=== PATIENT | female | born 1930 | race Caucasian/White ===

== ENCOUNTER 2016-12-09 17:28 | Emergency (ER) | payer OTHER ==
--- NOTE | 2016-12-09 17:49 | ED.PDOC ---
History of Present Illness - General Chief Complaint: Chest Pain/OK Stated Complaint: elevated troponin Time Seen by Provider: 12/09/16 17:37 Source: patient, RN notes reviewed, Vital Signs reviewed, family - Daughter Exam Limitations: no limitations - History of Present Illness Initial Comments: Patient was sent for outpatient EKG and labs. Labs done @ 16:25 showed an elevated Troponin of 0.08 so patient was called and told to come the the ER. Patient and daughter report that she did have an episode of chest pain with SOB that started about 6am today. She describes it as a dull pressure and feeling like she could not breath. Unsure how long it lasted but it was a single episode , it did not come and go. She is currently pain free and breathing without difficulty. No diaphoresis or nausea. Timing/Duration: resolved prior to arrival, gone now Severity: moderate Location: substernal Activities at Onset: sleep Prior Chest Pain/Cardiac Workup: no prior chest pain, no prior cardiac workup Improving Factors: nothing Worsening Factors: nothing Associated Symptoms: chest pain, shortness of breath Allergies/Adverse Reactions: Allergies NO KNOWN ALLERGY Allergy (Verified 01/18/15 18:34) Home Medications: Ambulatory Orders Furosemide [Lasix] 20 mg PO DAILY #10 tab 11/10/13 Potassium Chloride Tab [K-Dur] 20 meq PO DAILY #10 tab 11/10/13 Enoxaparin Sodium [Lovenox] 80 mg SUBCU DAILY #7 syg 01/18/15 Warfarin Sodium [Coumadin] 5 mg PO DAILY #90 tab 01/18/15 Review of Systems - Review of Systems Constitutional: States: no symptoms reported. Denies: chills, diaphoresis, malaise EENTM: States: no symptoms reported Respiratory: States: see HPI, short of breath. Denies: cough Cardiology: States: see HPI, chest pain. Denies: palpitations, syncope Gastrointestinal/Abdominal: States: no symptoms reported. Denies: nausea, vomiting Musculoskeletal: States: no symptoms reported Skin: States: no symptoms reported Neurological: States: no symptoms reported All other Systems: No Change from Baseline Past Medical History (General) - Patient Medical History Hx Hypertension: No Hx Diabetes: No - Vaccination History Hx Tetanus, Diphtheria Vaccination: Yes Hx Influenza Vaccination: No - refuses - Social History Hx Tobacco Use: No - Female History Patient : No Family Medical History - Family History Mother Family History: No Known Physical Exam - Physical Exam General Appearance: Alert, Comfortable, Frail, No apparent distress, Well Developed, Well Groomed, Well Hydrated, Well Nourished Neck: supple, normal inspection Respiratory: chest non-tender, lungs clear, normal breath sounds, no respiratory distress, no accessory muscle use Cardiovascular/Chest: regular rate, rhythm, no edema, no gallop, systolic murmur - / Gastrointestinal/Abdominal: normal bowel sounds, non tender, soft, no organomegaly, no pulsatile mass Extremity: normal range of motion, normal inspection Neurologic: alert, normal mood/affect, oriented x 3 Skin Exam: normal color, warm/dry Comments: Vital Signs 12/09/16 17:34 Temperature 98.0 F Pulse Rate [ 95 H monitor] Respiratory 20 Rate Blood Pressure 145/45 [Left Arm] O2 Sat by Pulse 96 Oximetry Progress - Progress Progress: 12/09/16 22:[address] Peñaloza @ [facility] in [place]. Will transfer to patient directly to ICU. - Results/Orders Results/Orders: Laboratory Tests 12/09/16 12/09/16 19:40 19:51 D-Dimer, Quantitative 4678 H* Creatine Kinase 57 CK-MB (CK-2) 1.9 CK-MB (CK-2) % Not Reportable Troponin I 0.08 H* B-Natriuretic Peptide Cancelled - EKG/XRAY/CT EKG: Sinus, no ST T wave changes Comments: Rate 94 CT: Rupesh Pulm. Emboli: R main extending through most of lung, L sm clot LLL CT Ordered: Yes Departure - Departure Clinical Impression: Troponin level elevated Pulmonary embolism Qualifiers: Pulmonary embolism type: other Chronicity: acute Acute cor pulmonale presence: without acute cor pulmonale Qualified Code(s): I26.99 - Other pulmonary embolism without acute cor pulmonale Time of Disposition: 22:50 Disposition: Transfer to Hospital Condition: Poor Departure Forms: ED Discharge - Pt. Copy, Patient Portal Self Enrollment Referrals: Cristiana Kuo NP [Primary Care Provider] - 1-2 Weeks Home Medications: Ambulatory Orders Furosemide [Lasix] 20 mg PO DAILY #10 tab 11/10/13 Potassium Chloride Tab [K-Dur] 20 meq PO DAILY #10 tab 11/10/13 Enoxaparin Sodium [Lovenox] 80 mg SUBCU DAILY #7 syg 01/18/15 Warfarin Sodium [Coumadin] 5 mg PO DAILY #90 tab 01/18/15 Transfer to Outside Facility - Transfer Information Accepting Provider:: Dr. Peñaloza Accepting Facility: [facility] Reason for Transfer: specialized care not available
[2016-12-09 20:35] VITALS: O2SAT 94
--- NOTE | 2016-12-09 22:31 | CT ---
EXAM DESCRIPTION: CTA Chest CLINICAL HISTORY: 86 years Female, chest pain w/ elevated D-Dimer COMPARISON: Chest radiograph same day TECHNIQUE: Axial CT images of the chest were acquired after the administration of intravenous contrast. Coronal and sagittal reconstructions were obtained. 3-D postprocessing was acquired at an independent workstation. This exam was performed according to our departmental dose-optimization program which includes use of Automated Exposure Control, adjustment of the mA and/or kV according to patient size and/or use of iterative reconstruction technique. FINDINGS: Neck base: Heterogeneous thyroid with a subcentimeter hypoattenuating right thyroid nodule. Mediastinum: Small hiatal hernia with thickening of the distal esophagus. Lymph Nodes: No lymphadenopathy. Heart and pericardium: There is no evidence of right heart strain. Coronary artery calcifications. Aorta: Moderate calcific atherosclerosis of the thoracic aorta. Pulmonary Artery: Thrombus within the main right pulmonary artery extending into multiple lobar, segmental, and subsegmental branches. Smaller amount of thrombus within the left lower lobe lobar and subsegmental branches. Central Airways: Patent. Pleura: Small left pleural effusion. Lungs: Biapical scarring. 3 mm right lower lobe groundglass nodule image 23 series 2. 2 mm pulmonary nodule left upper lobe image 10. Mild bibasilar atelectasis. Upper abdomen: Cholelithiasis. Bones and soft tissues: Partially visualized chronic appearing compression deformity of the L1 vertebral body. IMPRESSION: Large right and small left pulmonary emboli. No evidence of right heart strain. Small pulmonary nodules, the largest measuring 3 mm in the right lower lobe. Consider optional chest CT in 12 months. Cholelithiasis. Chronic appearing compression deformity of the L1 vertebral body. Critical findings discussed with Dr. ZAK SCHERER by Alvarez Hernández MD at 12/09/2016 10:25 PM CDT by phone. Electronically signed by: Alvarez Hernández MD 12/09/2016 10:30 PM CDT
[2016-12-09 22:48] VITALS: BP 151/73
[2016-12-09] MEDS ORDERED: HEPARIN PREMIX 500 ML ONE (22:54)
[2016-12-09] MEDS ORDERED: HEPARIN PREMIX 25,000 UNITS in PREMIX BAG 1 BAG IVS SCH (23:00)
[2016-12-09 23:15] VITALS: TEMP 96.6
== END 2016-12-09 23:16 | disposition short-term general hospital (02) ==
LOC: ER 17:28
DX: I26.99 Other pulmonary embolism without acute cor pulmonale (principal); R79.89 Other specified abnormal findings of blood chemistry; Z79.899 Other long term (current) drug therapy; Z79.01 Long term (current) use of anticoagulants
CPT/HCPCS: 36415; 71275; 82550; 82553; 84484; 85379; J1644

== ENCOUNTER 2017-07-02 19:33 | Emergency (ER) | payer OTHER ==
--- NOTE | 2017-07-02 19:59 | ED.PDOC ---
History of Present Illness - General Chief Complaint: Lower Extremity Injury Stated Complaint: left lower extremity pain Time Seen by Provider: 07/02/17 19:55 Source: family - daughter Exam Limitations: no limitations - History of Present Illness Initial Comments: Chika Sampson 87 y/o female brought by daughter with sharp left thigh pain while while walking twisting her left leg and almost fell but daughter was able to grab her. Occurred: just prior to arrival Pain - Lower Extremity: moderate: Left Thigh/Hip, Left Knee Method of Injury: twisted Improving Factors: rest Worsening Factors: movement Associated Symptoms: pain Allergies/Adverse Reactions: Allergies NO KNOWN ALLERGY Allergy (Verified 01/18/15 18:34) Home Medications: Ambulatory Orders Furosemide [Lasix] 20 mg PO DAILY #10 tab 11/10/13 Potassium Chloride Tab [K-Dur] 20 meq PO DAILY #10 tab 11/10/13 Enoxaparin Sodium [Lovenox] 80 mg SUBCU DAILY #7 syg 01/18/15 Warfarin Sodium [Coumadin] 5 mg PO DAILY #90 tab 01/18/15 Review of Systems - Review of Systems Constitutional: States: no symptoms reported EENTM: States: no symptoms reported Respiratory: States: no symptoms reported Cardiology: States: no symptoms reported Gastrointestinal/Abdominal: States: no symptoms reported Musculoskeletal: States: see HPI All other Systems: Reviewed and Negative, No Change from Baseline Past Medical History (General) - Patient Medical History Hx Seizures: No Hx Stroke: No Hx Dementia: No Hx Asthma: No Hx of COPD: No Hx Cardiac Disorders: No Hx Congestive Heart Failure: Yes - takes lasix and potassium Hx Pacemaker: No Hx Hypertension: No Hx Thyroid Disease: No Hx Diabetes: No Hx Gastroesophageal Reflux: No Hx Renal Disease: No Hx of HIV: No Hx MRSA: No Hx Other PMH: Yes - pe/dvt-on NOACS - Vaccination History Hx Tetanus, Diphtheria Vaccination: Yes Hx Influenza Vaccination: No - refuses - Social History Hx Tobacco Use: No - Female History Patient : No Family Medical History - Family History Mother Family History: No Known Physical Exam - Physical Exam General Appearance: Alert, Comfortable, No apparent distress Eyes, Ears, Nose, Throat: normal ENT inspection Neck: non-tender, full range of motion Cardiovascular/Respiratory: regular rate, rhythm, no M/R/G, normal peripheral pulses Back: no CVA tenderness, no vertebral tenderness Thigh/Hip: normal ROM, bone tenderness - left femur, pain - left thigh, soft tissue tenderness - left thigh Leg: non-tender, no evidence of injury Knee: limited ROM - left kne pain,firm no instability Ankle: normal inspection, no evidence of injury Foot: normal inspection, no evidence of injury Neuro/Tendon: normal sensation, normal motor functions Mental Status: alert Skin: normal color, warm/dry Progress - Progress Progress: 07/02/17 21:09 Patient Taking Eliquis 5 mg po BID for her dvt/pe - EKG/XRAY/CT XRAY: knee - no fracture noted hip,fenur knee-left Departure - Departure Clinical Impression: Sprain of left knee/leg Qualifiers: Encounter type: initial encounter Qualified Code(s): S83.92XA - Sprain of unspecified site of left knee, initial encounter Time of Disposition: 21:05 Disposition: Discharge to Home or Self Care Departure Forms: ED Discharge - Pt. Copy, Patient Portal Self Enrollment Instructions: DI for Knee Sprain, DI for Ligament Sprains Referrals: Cristiana Kuo NP [Primary Care Provider] - 1-2 Weeks Home Medications: Ambulatory Orders Furosemide [Lasix] 20 mg PO DAILY #10 tab 11/10/13 Potassium Chloride Tab [K-Dur] 20 meq PO DAILY #10 tab 11/10/13 Enoxaparin Sodium [Lovenox] 80 mg SUBCU DAILY #7 syg 01/18/15 Warfarin Sodium [Coumadin] 5 mg PO DAILY #90 tab 01/18/15 Additional Instructions: Follow up with primary Md 05 July 2017;Return to ER as needed
--- NOTE | 2017-07-02 20:54 | RAD ---
EXAM DESCRIPTION: Femur,Left CLINICAL HISTORY: pain COMPARISON: None FINDINGS: 4 view(s) submitted. Left hip prosthetic hardware appears intact. No definite acute failure or loosening. Osteopenia limits sensitivity for fracture. No fracture or dislocation is identified. Bone marrow attenuation is unremarkable. IMPRESSION: No acute fracture or dislocation. Electronically signed by: Latrell Bailon 07/02/2017 8:53 PM CDT
--- NOTE | 2017-07-02 20:56 | RAD ---
Examination: XR HIP 2 OR MORE VIEWS dated 07/02/2017 8:03 PM CDT History: pain Comparison: None Technique: Two views of the left hip FINDINGS: Left hip arthroplasty without dislocation or periprosthetic fracture. Osteopenia of the visualized pelvis limits evaluation for a subtle fracture. IMPRESSION: Left hip arthroplasty without acute fracture or dislocation. Electronically signed by: Alvarez Hernández MD 07/02/2017 8:55 PM CDT
--- NOTE | 2017-07-02 20:56 | RAD ---
EXAM DESCRIPTION: Knee,Left 2 or More Views CLINICAL HISTORY: pain COMPARISON: None FINDINGS: 2 views were submitted. No fracture or dislocation is identified. Bone marrow attenuation is unremarkable. No radiopaque foreign body is identified. IMPRESSION: No acute fracture or dislocation. Electronically signed by: Latrell Bailon 07/02/2017 8:55 PM CDT
[2017-07-02] MEDS ORDERED: HYDROcodone 5MG/APAP 325MG 1 EA TAB PO ONE (21:06)
[2017-07-03 03:13] VITALS: BP 167/78; TEMP 98.7; O2SAT 94
== END 2017-07-02 22:50 | disposition home or self-care (01) ==
LOC: ER 19:33
DX: S83.92XA Sprain of unspecified site of left knee, initial encounter (principal); I50.9 Heart failure, unspecified; Z86.711 Personal history of pulmonary embolism; Z86.718 Personal history of other venous thrombosis and embolism; Z79.01 Long term (current) use of anticoagulants; X50.1XXA Overexertion from prolonged static or awkward postures, initial encounter; Y92.9 Unspecified place or not applicable

== ENCOUNTER 2017-07-05 19:56 | Emergency (ER) | payer OTHER ==
--- NOTE | 2017-07-05 20:07 | ED.PDOC ---
History of Present Illness - General Time Seen by Provider: 07/05/17 20:04 Source: patient, RN notes reviewed, Vital Signs reviewed Exam Limitations: no limitations - History of Present Illness Occurred: just prior to arrival Pain - Lower Extremity: moderate: Left Knee - fell Wednesday Method of Injury: fell Improving Factors: immobilization Worsening Factors: movement Allergies/Adverse Reactions: Allergies NO KNOWN ALLERGY Allergy (Verified 01/18/15 18:34) Home Medications: Ambulatory Orders Furosemide [Lasix] 20 mg PO DAILY #10 tab 11/10/13 Potassium Chloride Tab [K-Dur] 20 meq PO DAILY #10 tab 11/10/13 Enoxaparin Sodium [Lovenox] 80 mg SUBCU DAILY #7 syg 01/18/15 Warfarin Sodium [Coumadin] 5 mg PO DAILY #90 tab 01/18/15 Nitrofurantoin Monohydrate Mac [Macrobid] 100 mg PO BID 7 Days #14 capsule 07/06 Tramadol HCl [Ultram] 50 mg PO BID PRN #20 tab 07/06/17 Review of Systems - Review of Systems Constitutional: States: no symptoms reported EENTM: States: no symptoms reported Respiratory: States: no symptoms reported Cardiology: States: no symptoms reported Gastrointestinal/Abdominal: States: no symptoms reported Genitourinary: States: frequency Musculoskeletal: States: joint pain, muscle pain, muscle stiffness Skin: States: no symptoms reported Neurological: States: no symptoms reported Past Medical History (General) - Patient Medical History Hx Seizures: No Hx Stroke: No Hx Dementia: No Hx Asthma: No Hx of COPD: No Hx Cardiac Disorders: No Hx Congestive Heart Failure: Yes - takes lasix and potassium Hx Pacemaker: No Hx Hypertension: No Hx Thyroid Disease: No Hx Diabetes: No Hx Gastroesophageal Reflux: No Hx Renal Disease: No Hx Cancer: No Hx of HIV: No Hx Hepatitis C: No Hx MRSA: No - Vaccination History Hx Tetanus, Diphtheria Vaccination: Yes Hx Influenza Vaccination: No - refuses Hx Pneumococcal Vaccination: Yes - Social History Hx Tobacco Use: No Hx Chewing Tobacco Use: No Hx Alcohol Use: No Hx Substance Use: No Hx Substance Use Treatment: No Hx Depression: No Hx Physical Abuse: No Hx Emotional Abuse: No Hx Suspected Abuse: No - Female History Patient : No Family Medical History - Family History Mother Family History: No Known Living Status: Physical Exam - Physical Exam General Appearance: Alert, Anxious Eyes, Ears, Nose, Throat: other - dry membranes Neck: non-tender, full range of motion, supple Cardiovascular/Respiratory: regular rate, rhythm, no M/R/G Gastrointestinal/Abdominal: non-tender Back: normal inspection, no CVA tenderness, no vertebral tenderness Thigh/Hip: normal inspection, bone tenderness Leg: normal inspection, bone tenderness, limited ROM Knee: normal inspection, bone tenderness, ecchymosis, limited ROM Ankle: normal inspection, non-tender, no evidence of injury, normal ROM Foot: normal inspection, non-tender, no evidence of injury, normal ROM Neuro/Tendon: normal sensation Mental Status: alert Skin: warm/dry Progress - Progress Progress: 07/05/17 20:06 pt seen in urgent care today and [facility]ER felt patient needed further workup for lower extremity pain s/p fall. Reported normal xrays. 07/05/17 20:28 pt has inability to bear weight on extremity , difficult to locate exact area of tenderness, will order ct to rule out occult fracture, traumatic or infectious etiology to thigh pain/ tenderness 07/06/17 00:10 CT shows non displaced distal femur fracture will splint in place and obtain f/ u with Dr. Law for treatment. Discussed non weigt bearing with Daughter, pain medication treatment, return if acute worsening or problem. Will treat UTI with abx, discussed increase po fluid Departure - Departure Clinical Impression: Urinary tract bacterial infections Femur fracture, left Qualifiers: Encounter type: initial encounter Femur location: distal Fracture type: closed Fracture morphology: unspecified fracture morphology Qualified Code(s): S72.402A - Unspecified fracture of lower end of left femur, initial encounter for closed fracture Time of Disposition: 00:13 Disposition: Discharge to Home or Self Care Condition: Good Instructions: DI for Femoral Fracture, Urinary Tract Infection Diet: resume usual diet Activity: other - non weight bearing on affect extremity Referrals: Brennon Law MD [Active Staff] - 1-5 Days (Distal Femur Fracture) Cristiana Kuo NP [Primary Care Provider] - 1-2 Weeks (UTI) Prescriptions: Nitrofurantoin Monohydrate Mac [Macrobid] 100 mg PO BID 7 Days #14 capsule Tramadol HCl [Ultram] 50 mg PO BID PRN #20 tab PRN Reason: Pain Home Medications: Ambulatory Orders Furosemide [Lasix] 20 mg PO DAILY #10 tab 11/10/13 Potassium Chloride Tab [K-Dur] 20 meq PO DAILY #10 tab 11/10/13 Enoxaparin Sodium [Lovenox] 80 mg SUBCU DAILY #7 syg 01/18/15 Warfarin Sodium [Coumadin] 5 mg PO DAILY #90 tab 01/18/15 Nitrofurantoin Monohydrate Mac [Macrobid] 100 mg PO BID 7 Days #14 capsule 07/06 Tramadol HCl [Ultram] 50 mg PO BID PRN #20 tab 07/06/17
[2017-07-05] MEDS ORDERED: SODIUM CHLORIDE 0.9% 500ML 500 ML IVS ONE (20:26)
[2017-07-05] MEDS ORDERED: ACETAMINOPHEN 500 MG TAB PO ONE (20:26)
--- NOTE | 2017-07-05 23:35 | CT ---
EXAM: Lower Extremity w/Contrast CLINICAL INDICATION: 87-year-old female with LEFT lower extremity pain status post trauma. COMPARISON: None. TECHNIQUE: CT LEFT femur following intravenous administration of contrast. This exam was performed according to our departmental dose optimization program which includes use of automated exposure control, adjustment of the mA and/or kV according to patient size and/or use of iterative reconstruction technique. FINDINGS: Bones: Tiny step-off is identified present at the level of the distal anterior femur raising the concern for nondisplaced fracture, (series 4, image 170). Trace suprapatellar joint effusion. LEFT total hip arthroplasty device in gross anatomic alignment. The bones are diffusely demineralized limiting assessment for subtle fracture. No gross fracture is identified. If there remains clinical concern for fracture, further evaluation with MRI may be considered. Mild degenerative changes are noted at the knee with sharpening of the tibial spines and small tricompartmental osteophytes. Soft tissues: Limited evaluation of the soft tissues at the level of the prosthesis secondary to metallic density streak artifact. Pelvis: Limited evaluation the pelvis reveals extensive volume of fecal content present at the level of the rectum raising the question of fecal stasis/fecal impaction. Scattered foci of calcification within the uterus represent sequela of leiomyoma. IMPRESSION: 1. Tiny step-off present at the level of the distal anterior femur raising the concern for nondisplaced fracture. 2. LEFT total hip arthroplasty device in gross anatomic alignment without findings to suggest fracture, however limited by diffuse demineralization. 3. Incidentally noted extensive volume of fecal content present at the level of the rectum raising the question of fecal stasis/fecal impaction. Electronically signed by: Linda Lazo MD 07/05/2017 11:34 PM CDT
[2017-07-06 00:58] VITALS: BP 134/76; TEMP 98.1
[2017-07-06 01:06] VITALS: O2SAT 98
== END 2017-07-06 01:00 | disposition home or self-care (01) ==
LOC: ER 19:56
DX: S72.402A Unspecified fracture of lower end of left femur, initial encounter for closed fracture (principal); N39.0 Urinary tract infection, site not specified; I50.9 Heart failure, unspecified; Z79.01 Long term (current) use of anticoagulants; Z79.899 Other long term (current) drug therapy; Z96.642 Presence of left artificial hip joint; W19.XXXA Unspecified fall, initial encounter; Y92.9 Unspecified place or not applicable
CPT/HCPCS: 36415; 73701; 80053; 81001; 85025; J7040

== ENCOUNTER → 2018-02-18 | Outpatient (CLI) | payer OTHER | LOC: LAB.O 13:02 | PROVIDERS: ATTEND Family Medicine | DX: Z13.29 Encounter for screening for other suspected endocrine disorder (principal); R63.4 Abnormal weight loss; R03.0 Elevated blood-pressure reading, without diagnosis of hypertension ==

== ENCOUNTER → 2018-03-09 | Outpatient (CLI) | payer OTHER | LOC: LAB.O 14:09 | PROVIDERS: ATTEND Family Medicine | DX: R94.6 Abnormal results of thyroid function studies (principal); R94.4 Abnormal results of kidney function studies ==

== ENCOUNTER 2018-03-10 03:20 | Emergency (ER) | payer OTHER ==
[2018-03-10 03:44] VITALS: BP 157/74; TEMP 98.3; O2SAT 100
--- NOTE | 2018-03-10 03:48 | ED.PDOC ---
History of Present Illness - General Chief Complaint: General Stated Complaint: generalized leg weakness Time Seen by Provider: 03/10/18 03:44 Source: family Exam Limitations: clinical condition - History of Present Illness Initial Comments: THIS PATIENT IS BROUGHT IN BY HER DAUGHTER. IT WAS DIFFICULT TO COMPREHEND THE REASON OF THIS VISIT. I CAN UNDERSTAND THIS PATIENT IS ABLE TO WALK WITH ASSISTANCE OF A CANE AND USUALLY LEANS ON THE DAUGHTER TO MOVE. THE DAUGHTER HAS AN INJURED LEFT SHOULDER AND ON AN ARM SLING MAKING IT DIFFICULT TO ASSIST HER MOTHER WALK. THE PATIENT DENIES ANY INJURY. 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 Timing/Duration: unsure Severity: mild Improving Factors: nothing Worsening Factors: nothing Associated Symptoms: denies symptoms Allergies/Adverse Reactions: Allergies NO KNOWN ALLERGY Allergy (Verified 03/10/18 03:42) Home Medications: Ambulatory Orders Furosemide [Lasix] 20 mg PO DAILY #10 tab 11/10/13 Potassium Chloride Tab [K-Dur] 20 meq PO DAILY #10 tab 11/10/13 Enoxaparin Sodium [Lovenox] 80 mg SUBCU DAILY #7 syg 01/18/15 Warfarin Sodium [Coumadin] 5 mg PO DAILY #90 tab 01/18/15 Nitrofurantoin Monohydrate Mac [Macrobid] 100 mg PO BID 7 Days #14 capsule 07/06/17 Tramadol HCl [Ultram] 50 mg PO BID PRN #20 tab 07/06/17 Review of Systems - Review of Systems Constitutional: States: weakness EENTM: States: no symptoms reported Respiratory: States: no symptoms reported Cardiology: States: no symptoms reported Gastrointestinal/Abdominal: States: no symptoms reported Genitourinary: States: no symptoms reported Musculoskeletal: States: joint pain Skin: States: no symptoms reported Neurological: States: no symptoms reported Hematologic/Lymphatic: States: no symptoms reported Past Medical History (General) - Patient Medical History Hx Seizures: No Hx Stroke: No Hx Dementia: No Hx Asthma: No Hx of COPD: No Hx Cardiac Disorders: No Hx Congestive Heart Failure: Yes - takes lasix and potassium Hx Pacemaker: No Hx Hypertension: No Hx Thyroid Disease: No Hx Diabetes: No Hx Gastroesophageal Reflux: No Hx Renal Disease: No Hx Cancer: No Hx of HIV: No Hx Hepatitis C: No Hx MRSA: No Surgical History: noncontributory - Vaccination History Hx Tetanus, Diphtheria Vaccination: Yes Hx Influenza Vaccination: No - refuses Hx Pneumococcal Vaccination: Yes - Social History Hx Tobacco Use: No Hx Chewing Tobacco Use: No Hx Alcohol Use: No Hx Substance Use: No Hx Substance Use Treatment: No Hx Depression: No Hx Physical Abuse: No Hx Emotional Abuse: No Hx Suspected Abuse: No - Female History Patient : No Family Medical History - Family History Mother Family History: No Known Living Status: Physical Exam - Physical Exam General Appearance: Alert, No apparent distress Eye Exam: bilateral normal Ears, Nose, Throat: hearing grossly normal Neck: non-tender, full range of motion, supple Respiratory: chest non-tender, lungs clear Cardiovascular/Chest: normal peripheral pulses, regular rate, rhythm, no edema, no gallop Peripheral Pulses: femoral,right: 2+, femoral,left: 2+ Gastrointestinal/Abdominal: normal bowel sounds, non tender Extremity: normal range of motion, non-tender, normal inspection, no pedal edema, no calf tenderness, other - THE LEGS ARE EXAMINED. NO SWELLING NOTED AND NEGATIVE MELODIE SIGN BILATERALLY. Neurologic: alert Skin Exam: normal color Progress - Progress Progress: 03/10/18 03:51 WALK TEST WILL BE PERFORMED. 03/10/18 04:14 THE PATIENT IS SENILE BUT SHE IS ABLE TO WALK WITH HER CANE AND WITH ASSISTANCE. Departure - Departure Clinical Impression: Impaired ambulation, Senility Time of Disposition: 04:16 Disposition: Discharge to Home or Self Care Condition: Fair Departure Forms: ED Discharge - Pt. Copy, Patient Portal Self Enrollment Diet: resume usual diet Activity: ambulate only with walker Referrals: Cristiana Kuo NP [Primary Care Provider] - 1-2 Weeks Home Medications: Ambulatory Orders Furosemide [Lasix] 20 mg PO DAILY #10 tab 11/10/13 Potassium Chloride Tab [K-Dur] 20 meq PO DAILY #10 tab 11/10/13 Enoxaparin Sodium [Lovenox] 80 mg SUBCU DAILY #7 syg 01/18/15 Warfarin Sodium [Coumadin] 5 mg PO DAILY #90 tab 01/18/15 Nitrofurantoin Monohydrate Mac [Macrobid] 100 mg PO BID 7 Days #14 capsule 07/06/17 Tramadol HCl [Ultram] 50 mg PO BID PRN #20 tab 07/06/17 Additional Instructions: RECOMMEND PHYSICAL THERAPY TO STRENGTHEN HER MUSCLES. THE DAUGHTER MIGHT CONSIDER CUSTODIAL.
== END 2018-03-10 04:43 | disposition home or self-care (01) ==
LOC: ER 03:20
DX: R41.81 Age-related cognitive decline (principal); R29.898 Other symptoms and signs involving the musculoskeletal system; Z74.09 Other reduced mobility; Z79.899 Other long term (current) drug therapy; Z79.01 Long term (current) use of anticoagulants; Z86.718 Personal history of other venous thrombosis and embolism

== ENCOUNTER → 2018-03-17 | Outpatient (CLI) | payer OTHER ==
--- NOTE | 2018-03-17 13:29 | RAD ---
EXAM DESCRIPTION: Knee,Right 2 or More Views CLINICAL HISTORY: 88 years Female, KNEE PAIN TECHNIQUE: 2 views of the right knee were performed. COMPARISON: None available. FINDINGS: Diffuse osteopenia of the visualized bones noted. No acute fracture or dislocation. Medial and lateral compartment joint space are well-maintained. No evidence of suprapatellar joint effusion. IMPRESSION: 1. No acute fracture or dislocation. Electronically signed by: Grant Molina MD 03/17/2018 1:28 PM [facility]
--- NOTE | 2018-03-17 13:36 | RAD ---
EXAM DESCRIPTION: Lumbar Spine 2 Views CLINICAL HISTORY: 88 years Female, LUMBAR PAIN COMPARISON: CTA chest dated December 09, 2016. FINDINGS: Suboptimal examination. The lumbar spine cannot be well visualized on the AP view. Lateral radiograph demonstrates multilevel degenerative disease of the lumbar spine with an age-indeterminate severe compression fracture of the L1 vertebral body with mild retropulsion. This was also partially visualized on prior CT chest dated December 26, 2016. 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 IMPRESSION: 1. Suboptimal examination. Lumbar spine cannot be visualized on AP view. 2. Lateral radiograph of the lumbar spine demonstrates a persistent age-indeterminate severe compression fracture of L1 vertebral body with mild retropulsion, which likely appears stable from prior CT chest dated December 26, 2016. Multilevel degenerative changes of the lumbar spine are seen. Electronically signed by: Grant Molina MD 03/17/2018 1:35 PM [facility]
== END ==
LOC: YCFC.O 11:53
PROVIDERS: ATTEND Family Medicine
DX: S32.000A Wedge compression fracture of unspecified lumbar vertebra, initial encounter for closed fracture (principal); M79.604 Pain in right leg

== ENCOUNTER 2018-12-05 | Emergency (ER) | payer OTHER ==
--- NOTE | 2018-12-05 00:51 | ED.PDOC ---
History of Present Illness - General Chief Complaint: Respiratory Problem Stated Complaint: daughter noted patient coughing today Time Seen by Provider: 12/05/18 00:48 Additional Information: Daughter brought the pt with c/o having choking sensation off and on today , had similar episode before also - History of Present Illness Allergies/Adverse Reactions: Allergies NO KNOWN ALLERGY Allergy (Verified 03/10/18 03:42) Home Medications: Ambulatory Orders Furosemide [Lasix] 20 mg PO DAILY #10 tab 11/10/13 Potassium Chloride Tab [K-Dur] 20 meq PO DAILY #10 tab 11/10/13 Enoxaparin Sodium [Lovenox] 80 mg SUBCU DAILY #7 syg 01/18/15 Warfarin Sodium [Coumadin] 5 mg PO DAILY #90 tab 01/18/15 Nitrofurantoin Monohydrate Mac [Macrobid] 100 mg PO BID 7 Days #14 capsule Tramadol HCl [Ultram] 50 mg PO BID PRN #20 tab 07/06/17 Amoxicillin & Pot Clavulanate [Augmentin Tab] 500 mg PO BID #20 tablet 12/05/18 Review of Systems - Review of Systems Constitutional: States: no symptoms reported EENTM: States: other - ulceration on the palate Respiratory: States: no symptoms reported Cardiology: States: no symptoms reported Gastrointestinal/Abdominal: States: no symptoms reported Genitourinary: States: no symptoms reported Musculoskeletal: States: no symptoms reported Skin: States: no symptoms reported Neurological: States: no symptoms reported Past Medical History (General) - Patient Medical History Hx Seizures: Yes - history Hx Stroke: No Hx Dementia: No Hx Asthma: No Hx of COPD: No Hx Cardiac Disorders: Yes - AFib Hx Congestive Heart Failure: Yes Hx Pacemaker: No Hx Hypertension: Yes Hx Thyroid Disease: No Hx Diabetes: No Hx Gastroesophageal Reflux: No Hx Renal Disease: No Hx Cancer: No Hx of HIV: No Hx Hepatitis C: No Hx MRSA: No - Vaccination History Hx Tetanus, Diphtheria Vaccination: Yes Hx Influenza Vaccination: No - refuses Hx Pneumococcal Vaccination: Yes - Social History Hx Tobacco Use: No Hx Chewing Tobacco Use: No Hx Alcohol Use: No Hx Substance Use: No Hx Substance Use Treatment: No Hx Depression: No Hx Physical Abuse: No Hx Emotional Abuse: No Hx Suspected Abuse: No - Activities of Daily Living [facility] (if applicable[facility]:: [place] - Female History Patient : No Family Medical History - Family History Mother Family History: No Known Living Status: Physical Exam - Physical Exam General Appearance: Frail Ears, Nose, Throat: normal pharynx, other - ulceration on the palate Neck: supple Respiratory: chest non-tender, normal breath sounds Cardiovascular/Chest: regular rate, rhythm Extremity: non-tender Neurologic: normal mood/affect Skin Exam: normal color Lymphatic: no adenopathy Departure - Departure Clinical Impression: Oral ulcer Time of Disposition: 00:52 Disposition: Discharge to SNF Condition: Good Departure Forms: ED Discharge - Pt. Copy, Patient Portal Self Enrollment Instructions: DI for Pneumonia -- Adult Diet: resume usual diet Activity: as per physical therapy Referrals: Cristiana Kuo NP [Primary Care Provider] - 1-2 Weeks Prescriptions: Amoxicillin & Pot Clavulanate [Augmentin Tab] 500 mg PO BID #20 tablet Home Medications: Ambulatory Orders Furosemide [Lasix] 20 mg PO DAILY #10 tab 11/10/13 Potassium Chloride Tab [K-Dur] 20 meq PO DAILY #10 tab 11/10/13 Enoxaparin Sodium [Lovenox] 80 mg SUBCU DAILY #7 syg 01/18/15 Warfarin Sodium [Coumadin] 5 mg PO DAILY #90 tab 01/18/15 Nitrofurantoin Monohydrate Mac [Macrobid] 100 mg PO BID 7 Days #14 capsule 07/06/17 Tramadol HCl [Ultram] 50 mg PO BID PRN #20 tab 07/06/17 Amoxicillin & Pot Clavulanate [Augmentin Tab] 500 mg PO BID #20 tablet 12/05/18 Additional Instructions: Refer to ENT
== END 2018-12-05 01:32 ==

== ENCOUNTER 2018-12-10 | Emergency (ER) | payer OTHER ==
--- NOTE | 2018-12-10 11:27 | ED.PDOC ---
History of Present Illness - General Chief Complaint: Cardiac Respiratory Arrest Stated Complaint: Unresponsive, CPR in progress Time Seen by Provider: 12/10/18 07:37 - History of Present Illness Initial Comments: Pt was at the longterm when she became unresponsive. [facility] called EMS. 10 minutes later EMS arrived and noted pt in asystole and they began cpr. Pt underwent 20 minutes of cpr prior to arrival. On arrival, pt in asystole and ACLS protocols were followed. SEE MAR for medications and rhythms. Pt underwent 25 minutes of cpr and time of was 0758 hrs. Of note, pt's 2 days ago at the same longterm. Timing/Duration: 1/2 hour Severity: severe Activities at Onset: none Improving Factors: nothing Worsening Factors: nothing Allergies/Adverse Reactions: Allergies NO KNOWN ALLERGY Allergy (Verified 03/10/18 03:42) Home Medications: Ambulatory Orders Furosemide [Lasix] 20 mg PO DAILY #10 tab 11/10/13 Potassium Chloride Tab [K-Dur] 20 meq PO DAILY #10 tab 11/10/13 Enoxaparin Sodium [Lovenox] 80 mg SUBCU DAILY #7 syg 01/18/15 Warfarin Sodium [Coumadin] 5 mg PO DAILY #90 tab 01/18/15 Nitrofurantoin Monohydrate Mac [Macrobid] 100 mg PO BID 7 Days #14 capsule 07/06/17 Tramadol HCl [Ultram] 50 mg PO BID PRN #20 tab 07/06/17 Amoxicillin & Pot Clavulanate [Augmentin Tab] 500 mg PO BID #20 tablet 12/05/18 Review of Systems - Review of Systems Unable to Obtain Due To: condition, intubated, clinical condition Past Medical History (General) - Patient Medical History Hx Seizures: Yes - history Hx Stroke: No Hx Dementia: Yes - Alzheimer's Hx Asthma: No Hx of COPD: No Hx Cardiac Disorders: Yes - AFib Hx Congestive Heart Failure: Yes Hx Pacemaker: No Hx Hypertension: Yes Hx Thyroid Disease: No Hx Diabetes: No Hx Gastroesophageal Reflux: No Hx Renal Disease: No Hx Cancer: No Hx of HIV: No Hx Hepatitis C: No Hx MRSA: No - Vaccination History Hx Tetanus, Diphtheria Vaccination: Yes Hx Influenza Vaccination: No - refuses Hx Pneumococcal Vaccination: Yes - Social History Hx Tobacco Use: No Hx Chewing Tobacco Use: No Hx Alcohol Use: No Hx Substance Use: No Hx Substance Use Treatment: No Hx Depression: No Hx Physical Abuse: No Hx Emotional Abuse: No Hx Suspected Abuse: No - Activities of Daily Living [facility] - Female History Patient : No Family Medical History - Family History Mother Family History: No Known Living Status: Physical Exam - Physical Exam General Appearance: Frail Eyes, Ears, Nose, Throat Exam: other - fixed and dilated. Respiratory: other - Pt intubate. BS equal bilaterally. No respiratory effort. Cardiovascular/Chest: other - pulseless and no heart sounds appreciated on ascultation. Peripheral Pulses: radial,right: 0, radial,left: 0 Skin Exam: pallor, rash - wound on left hip, covered with tegaderm Progress - Progress Progress: 12/10/2018 0745 d/w daughter that her mother was gravely ill and had been in asystole x 25+ minutes. Daughter requests we continue with resuscitation efforts. 12/10/18 0800 Pt TOD is 0758 hrs 12/10/18 11:53 Brant Douglass M.D. # [id number] Departure - Departure Clinical Impression: Cardiac arrest, Respiratory arrest Time of Disposition: 11:53 Disposition: Departure Forms: ED Discharge - Pt. Copy, Patient Portal Self Enrollment Referrals: Cristiana Kuo NP [Primary Care Provider] - 1-2 Weeks Home Medications: Ambulatory Orders Furosemide [Lasix] 20 mg PO DAILY #10 tab 11/10/13 Potassium Chloride Tab [K-Dur] 20 meq PO DAILY #10 tab 11/10/13 Enoxaparin Sodium [Lovenox] 80 mg SUBCU DAILY #7 syg 01/18/15 Warfarin Sodium [Coumadin] 5 mg PO DAILY #90 tab 01/18/15 Nitrofurantoin Monohydrate Mac [Macrobid] 100 mg PO BID 7 Days #14 capsule 07/06/17 Tramadol HCl [Ultram] 50 mg PO BID PRN #20 tab 07/06/17 Amoxicillin & Pot Clavulanate [Augmentin Tab] 500 mg PO BID #20 tablet 12/05/18 Critical Care Note - Critical Care Note Total Time (mins): 35 Comments: This time included caring for the patient, family discussion and counseling as well as speaking with the [employer] mdm developer and chart documentation. This CC time does not include any performed procedures.
== END 2018-12-10 07:58 | disposition expired ==